=== PATIENT | male | born 1985 ===

== ENCOUNTER 2018-09-02 12:18 | Emergency (ER) | payer OTHER ==
[2018-09-02 12:41] VITALS: TEMP 98
--- NOTE | 2018-09-02 13:40 | C.PDOC ---
History Of Present Illness 32 y/o male with history of Cerebral Palsy brought to ED by EMS for evaluation of constipation and possible seizure [employer]. As per father at bedside patient stares when he defecates and reports no seizure like activity. As per father patient is at mental baseline while at ED. No other complaints at this time. Chief Complaint (Nursing): Seizure History Per: Family History/Exam Limitations: clinical condition Onset/Duration Of Symptoms: Days Current Symptoms Are (Timing): Still Present Past Medical History Reviewed: Historical Data, Nursing Documentation, Vital Signs Vital Signs: Last Vital Signs Temp 98.0 F 09/02/18 12:28 Pulse 85 09/02/18 12:28 Resp 20 09/02/18 12:28 BP 98/45 L 09/02/18 12:28 Pulse Ox 99 09/02/18 12:28 - Medical History PMH: No Chronic Diseases Surgical History: No Surg Hx Family History: States: No Known Family Hx - Social History Hx Alcohol Use: No Hx Substance Use: No - Immunization History Hx Tetanus Toxoid Vaccination: No Hx Influenza Vaccination: No Hx Pneumococcal Vaccination: No Review Of Systems Review Of Systems: ROS cannot be obtained secondary to pt's inabilty to answer questions. Physical Exam - Physical Exam Appears: Non-toxic, No Acute Distress Skin: Warm, Dry, No Rash Head: Atraumatic, Normacephalic Eye(s): bilateral: Normal Inspection Oral Mucosa: Moist Cardiovascular: Rhythm Regular Respiratory: Normal Breath Sounds, No Rales, No Rhonchi, No Wheezing Gastrointestinal/Abdominal: Soft, No Tenderness, No Guarding, No Rebound Neurological/Psych: Other (Baseline mental status consistent with Cerebral Palsy ) ED Course And Treatment O2 Sat by Pulse Oximetry: 99 (RA) Pulse Ox Interpretation: Normal Progress Note: Patient had extremely large bowel movement at ED. Patient's father made aware of discharge plan and agrees. Disposition - Disposition Referrals: [facility] Hao Saucedo, [Non-Staff] - Disposition: HOME/ ROUTINE Disposition Time: 13:15 Condition: GOOD Additional Instructions: MYRA MACIEL, thank you for letting us take care of you today. The emergency medical care you received today was directed at your acute symptoms. If you were prescribed any medication, please fill it and take as directed. It may take several days for your symptoms to resolve. Return to the Emergency Department if your symptoms worsen, do not improve, or if you have any other problems. Please contact your doctor or call one of the physicians/clinics you have been referred to that are listed on the Patient Visit Information form that is included in your discharge packet. Bring any paperwork you were given at discharge with you along with any medications you are taking to your follow up visit. Our treatment cannot replace ongoing medical care by a primary care provider outside of the emergency department. Thank you for allowing the [facility] team to be part of your care today. Return to the emergency room if you have any concerns. Follow up with your [facility] doctor for further management. Instructions: High Fiber Diet, Constipation, Adult (DC) Forms: [employer] (Estonian) - Clinical Impression Clinical Impression: Constipation - Scribe Statement The provider has reviewed the documentation as recorded by the Hectoribtrish Michael All medical record entries made by the Hectoribtrish were at my direction and personally dictated by me. I have reviewed the chart and agree that the record accurately reflects my personal performance of the history, physical exam, medical decision making, and the department course for this patient. I have also personally directed, reviewed, and agree with the discharge instructions and disposition.
[2018-09-02 14:19] VITALS: BP 98/64; PULSE 90; RESP 18
[2018-09-02 18:37] VITALS: O2SAT 99
== END 2018-09-02 14:19 | disposition home or self-care (01) ==
LOC: C.ER 12:18
DX: K59.00 Constipation, unspecified (principal)